=== PATIENT | female | born 1990 | race Caucasian/White ===

== ENCOUNTER 2018-04-28 14:47 | Emergency (ER) | payer SELFPAY ==
[~2018-04-28] VITALS: Ht 170.2 cm; Wt 137.1 kg
[2018-04-28 15:55] LABS: MEAN CORPUSCULAR HEMOGLOBIN 21.1 pg (27.0-34.8); MEAN CORPUSCULAR VOLUME 70.2 fL (80-100); MEAN PLATELET VOLUME 8.9 fL (7.4-10.4); PLATELET COUNT 468 x10^3/uL (130-400); RED BLOOD COUNT 4.58 x10^6/uL (3.82-5.3); RED CELL DISTRIBUTION WIDTH 17.8 % (9.6-15.2)
[2018-04-28 15:56] LABS: BASOPHILS # (AUTO) 0.04 x10^3/uL (0-0.1); BASOPHILS % (AUTO) 1 % (0-1); EOSINOPHILS # (AUTO) 0.15 x10^3/uL (0-0.4); EOSINOPHILS % (AUTO) 2 % (1-7); LYMPHOCYTES # (AUTO) 1.73 x10^3/uL (1-3.4); LYMPHOCYTES % (AUTO) 24 % (22-44); MD MORPH REVIEW ONLY; MONOCYTES # (AUTO) 0.35 x10^3/uL (0.2-0.8); MONOCYTES % (AUTO) 5 % (2-9); NEUTROPHILS # (AUTO) 4.82 x10^3/uL (1.8-6.8); NEUTROPHILS % (AUTO) 68 % (42-75)
[2018-04-28 16:02] LABS: INTERNATIONAL NORMALIZED RATIO 1.02 (0.93-1.1); PROTHROMBIN TIME 10.8 Seconds (9.6-11.5)
[2018-04-28 16:03] LABS: ALBUMIN 3.8 g/dL (3.4-5.0); ANION GAP 9 mmol/L (5-15); CALCIUM 8.7 mg/dL (8.5-10.1); CHLORIDE 109 mmol/L (98-107)
[2018-04-28 16:22] LABS: ANISOCYTOSIS 1+; MICROCYTOSIS 1+
[2018-04-28 16:23] LABS: HYPOCHROMIA 1+; OVALOCYTES 1+; POLYCHROMASIA 1+
[2018-04-28 16:24] LABS: <PLATELET ESTIMATE> INCREASED; LARGE PLATELETS 1+
[2018-04-28 16:42] LABS: MICROSCOPIC INDICATED
[2018-04-28 16:44] LABS: CULTURE INDICATED? NO
[2018-04-28] MEDS ORDERED: MEDROXYPROGESTERONE ACETATE 150 MG/ML IM ONE (17:00)
[2018-04-28 17:53] VITALS: BP 134/57
== END 2018-04-28 17:56 | disposition home or self-care (01) ==
LOC: ED 17:34
DX: N93.8 Other specified abnormal uterine and vaginal bleeding (principal)
CPT/HCPCS: 36415; 76830; 80048; 81001; 82040; 84703; 85025; 85610; 85730; 86850; 86900; 99284

== ENCOUNTER 2018-08-16 15:54 | Emergency (ER) | payer OTHER ==
[~2018-08-16] VITALS: Ht 172.7 cm; Wt 140.3 kg
--- NOTE | 2018-08-16 16:22 | NUR ---
PT. IS A & O X 4 WITH C/O LEFT PIT ABSCESS. PT. IS TAKING BACTRIM FOR IT WITHOUT RELIEF. CMS CHECKS ARE INTACT. PT. IS WAITING TO BE SEEN. PT. WAS GIVEN A BLANKET FOR WARMTH.
[2018-08-16] MEDS ORDERED: ACETAMINOPHEN 500 MG TABLET ONE (16:29)
[2018-08-16] MEDS ORDERED: ACETAMINOPHEN 500 MG TABLET PO ONE (16:30)
[2018-08-16 17:26] LABS: ALBUMIN 3.2 g/dL (3.4-5.0); ANION GAP 9 mmol/L (5-15); CALCIUM 8.3 mg/dL (8.5-10.1); CHLORIDE 109 mmol/L (98-107); CREATININE 0.96 mg/dL (0.55-1.02)
[2018-08-16 17:50] VITALS: BP 176/95
--- NOTE | 2018-08-16 17:52 | NUR ---
PT. RETURNS FROM ULTRASOUND AND IS RESTING AT THIS TIME.
[2018-08-16 18:15] LABS: BASOPHILS # (AUTO) 0.02 x10^3/uL (0-0.1); BASOPHILS % (AUTO) 0 % (0-1); EOSINOPHILS # (AUTO) 0.12 x10^3/uL (0-0.4); EOSINOPHILS % (AUTO) 3 % (1-7); LYMPHOCYTES # (AUTO) 0.65 x10^3/uL (1-3.4); LYMPHOCYTES % (AUTO) 16 % (22-44); MD NO; MEAN CORPUSCULAR HEMOGLOBIN 20.8 pg (27.0-34.8); MEAN CORPUSCULAR HGB CONC 31.9 g/dL (32.4-35.8); MEAN CORPUSCULAR VOLUME 65.2 fL (80-100); MEAN PLATELET VOLUME 9.3 fL (7.4-10.4); MONOCYTES # (AUTO) 0.37 x10^3/uL (0.2-0.8); MONOCYTES % (AUTO) 9 % (2-9); NEUTROPHILS # (AUTO) 3.03 x10^3/uL (1.8-6.8); NEUTROPHILS % (AUTO) 72 % (42-75); PLATELET COUNT 365 x10^3/uL (130-400); RED BLOOD COUNT 5.01 x10^6/uL (3.82-5.3); RED CELL DISTRIBUTION WIDTH 20.9 % (9.6-15.2)
--- NOTE | 2018-08-16 18:59 | NUR ---
WOUND CLEANED AND OPITFOAM DRESSING APPLIED. PT INSTRUCTED ON HOW TO CLEAN AT HOME TO PREVENT INFECTION.
--- NOTE | 2018-08-16 19:15 | NUR ---
BEDSIDE REPORT WAS GIVEN. PT.'S WOUNDS WERE DRESSED. PT. IS RESTING WITHOUT CONCERNS.
--- NOTE | 2018-08-16 19:34 | NUR ---
Patient/Caregiver given discharge instructions and they have confirmed that they understand the instructions. Patient ambulatory with steady gait.
== END 2018-08-16 19:36 | disposition home or self-care (01) ==
LOC: ED 19:00
DX: L73.2 Hidradenitis suppurativa (principal); F17.200 Nicotine dependence, unspecified, uncomplicated
CPT/HCPCS: 36415; 76642; 80048; 82040; 83605; 85025; 87040; 99284